=== PATIENT | female | born 2000 | race Two or more races ===

== ENCOUNTER 2020-09-22 22:44 | Emergency (ER) | payer OTHER ==
[~2020-09-22] VITALS: Ht 165.1 cm; Wt 113.4 kg
[2020-09-22 22:53] VITALS: BP 127/69
[2020-09-22] MEDS ORDERED: methylPREDNISolone SOD SUCC 125 MG/2 ML VL IM ONE (23:00)
[2020-09-22] MEDS ORDERED: diphenhdrAMINE HCL 25 MG CAP PO ONE (23:00)
== END 2020-09-23 01:36 | disposition left against medical advice (07) ==
LOC: ER 22:44
DX: T78.40XA Allergy, unspecified, initial encounter (principal); Z53.21 Procedure and treatment not carried out due to patient leaving prior to being seen by health care provider; X58.XXXA Exposure to other specified factors, initial encounter; Y93.89 Activity, other specified; Y92.89 Other specified places as the place of occurrence of the external cause; Y99.8 Other external cause status